=== PATIENT | male | born 1970 | race Caucasian/White ===

== ENCOUNTER 2020-07-21 17:06 | Emergency (ER) | payer OTHER ==
[2020-07-21 17:21] LABS: Appearance,Urine Clear (Clear); Bilirubin,Urine Negative (Negative); Blood,Urine Negative (Negative); Color,Urine Yellow; Glucose,Urine (UA) Negative (Negative); Ketones,Urine Negative (Negative); Leukocyte Esterase,Urine Negative (Negative); Nitrite,Urine Negative (Negative); Protein,Urine Trace (Negative); Specific Gravity,Urine 1.019 (1.001-1.035); Urobilinogen,Urine <2.0 mg/dL (<2.0)
[2020-07-21 17:31] LABS: Amphetamine Screen,Urine Detected (NotDetected); Barbiturate Screen,Urine Not Detected (NotDetected); Benzodiazepines Screen,Urine Not Detected (NotDetected); Cocaine Screen,Urine Not Detected (NotDetected); Methadone Screen, Urine Not Detected (NotDetected); Opiate Screen,Urine Not Detected (NotDetected); Oxycodone Screen, Urine Not Detected (NotDetected); Phencyclidine Screen,Urine Not Detected (NotDetected); Tricyclic Antidepressant,Urine Detected (NotDetected); Urn Cannabinoid Scrn Detected (NotDetected)
[2020-07-21] MEDS ORDERED: LORazepam 2 MG/ML INJ IV STA (18:03)
--- NOTE | 2020-07-21 18:28 | XR ---
EXAMINATION TYPE: XR chest 2V DATE OF EXAM: 07/21/2020 COMPARISON: NONE HISTORY: Weakness TECHNIQUE: 2 views FINDINGS: Heart and mediastinum are normal. Lungs are clear. Diaphragm is normal. Bony thorax is inta ct. There are chest leads. Pulmonary vascularity is normal. IMPRESSION: Normal chest.
[2020-07-21 18:33] VITALS: PULSE 105
[2020-07-21] MEDS ORDERED: SODIUM CHLORIDE 0.9% 1,000 ML IV ONE (18:34)
[2020-07-21 18:44] VITALS: TEMP 99.5
--- NOTE | 2020-07-21 18:51 | ED ---
General Adult HPI - General Chief complaint: Recheck/Abnormal Lab/Rx Stated complaint: lab recheck Time Seen by Provider: 07/21/20 17:10 Source: patient, EMS Mode of arrival: EMS Limitations: no limitations - History of Present Illness Initial comments: Patient is a 50-year-old male with past medical history of seizure disorder, chronic pain, ADHD who presents to the emergency department with reported palpitations and possible medication overdose. Patient reports that he normally takes Adderall 3 times daily. States that he accidentally took 4 tablets today. It caused him to feel very anxious with palpitations. He has also been out of his Klonopin for the past 2 days. 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 He is not on a pain contract. He denies chest pain or shortness of breath. Denies any other medications that were taken in excess. Denies withdrawing from any other medications. Does admit to marijuana use. Denies any other substance abuse. No headaches or visual changes. No abdominal pain. Admits to mild dysuria. Upon arrival patient is noted have a fever. States this is normal for him. Admits to mild nasal congestion several days ago which is aren't improving. Admits to chronic cough since he is a smoker however denies any new or worsening cough. No shortness of breath. No other allev iating, precipitating or modifying factors - Related Data Home Medications Medication Instructions Recorded Confirmed Albuterol Inhaler (Mhu) [Ventolin 1 - 2 puff INHALATION RT-Q6H PRN 06/26/19 06/26/19 Hfa Inhaler] Baclofen 10 mg PO TID 06/26/19 06/26/19 DULoxetine HCL [Cymbalta] 120 mg PO DAILY 06/26/19 06/26/19 Dextroamphetamine/Amphetamine 20 mg PO TID 06/26/19 06/26/19 [Adderall] Ibuprofen [Motrin] 600 mg PO BID 06/26/19 06/26/19 QUEtiapine FUMARATE [SEROquel XR] 400 mg PO DAILY 06/26/19 06/26/19 buPROPion XL [Wellbutrin Xl] 150 mg PO DAILY 06/26/19 06/26/19 clonazePAM [KlonoPIN] 0.5 mg PO DIRECTED PRN 06/26/19 06/26/19 clonazePAM [KlonoPIN] 1 mg PO BID 06/26/19 06/26/19 clonazePAM [KlonoPIN] 2 mg PO HS 06/26/19 06/26/19 lamoTRIgine [LaMICtal] 400 mg PO DAILY 06/26/19 06/26/19 Previous Rx's Medication Instructions Recorded clonazePAM [KlonoPIN] 1 mg PO TID 3 Days #9 tablet 07/21/20 Allergies Allergy/AdvReac Type Severity Reaction Status Date / Time sulfamethoxazole Allergy Itching/hot Verified 06/26/19 15:22 [From Bactrim] flashes trimethoprim [From Bactrim] Allergy Itching/hot Verified 06/26/19 15:22 flashes Review of Systems ROS Statement: Those systems with pertinent positive or pertinent negative responses have been documented in the HPI. ROS Other: All systems not noted in ROS Statement are negative. Past Medical History Past Medical History: Seizure Disorder Additional Past Medical History / Comment(s): last seizure approx 2017, chronic back pain History of Any Multi-Drug Resistant Organisms: None Reported Past Surgical History: Appendectomy, Cholecystectomy Additional Past Surgical History / Comment(s): rt eye sx, fluid drained rt leg, pain clinic procedures Past Anesthesia/Blood Transfusion Reactions: No Reported Reaction Past Psychological History: Anxiety, Bipolar, Depression Smoking Status: Current every day smoker Past Alcohol Use History: Occasional Past Drug Use History: Marijuana General Exam Limitations: no limitations General appearance: alert, in no apparent distress, anxious Head exam: Present: atraumatic, normocephalic, normal inspection Eye exam: Present: normal appearance, PERRL, EOMI. Absent: scleral icterus, conjunctival injection, periorbital swelling ENT exam: Present: normal exam, mucous membranes moist Neck exam: Present: normal inspection. Absent: tenderness, meningismus, lymphadenopathy Respiratory exam: Present: normal lung sounds bilaterally. Absent: respiratory distress, wheezes, rales, rhonchi, stridor Cardiovascular Exam: Present: normal rhythm, tachycardia GI/Abdominal exam: Present: soft, normal bowel sounds. Absent: distended, tenderness, guarding, rebound, rigid Neurological exam: Present: alert, oriented X3 Psychiatric exam: Present: anxious Skin exam: Present: warm, dry, intact, normal color. Absent: rash Course Vital Signs 07/21/20 07/21/20 07/21/20 17:09 18:14 18:43 Temperature 100.4 F H 99.5 F Pulse Rate 104 H 105 H Respiratory 20 20 Rate Blood Pressure 136/93 129/93 O2 Sat by Pulse 100 99 Oximetry 07/21/20 19:39 Temperature Pulse Rate 105 H Respiratory 18 Rate Blood Pressure 136/90 O2 Sat by Pulse 95 Oximetry Medical Decision Making - Medical Decision Making On arrival patient is placed into room 23. A thorough history and physical exam was performed. Patient does have a notable temp. Did request a covid swab and chest x-ray to evaluate for fever for which the patient did agree to. Urine is sent for dysuria. Lab studies are reviewed which demonstrates that the patient is positive for TCAs, amphetamines and marijuana. Coronavirus is detected. Chest x-ray demonstrates no acute process. Discuss results with the patient. Patient is afebrile after fluid administration. He isgiven 2 mg of Ativan for his palpitations and signs of acute withdrawal. He has no increased work of breathing. I discussed diagnosis, differential and treatment options. Patient feels comfortable going home at this time and is to follow-up with his primary care doctor. I instructed him to quarantine for 10 days or until symptoms improve. I will give him a 3 day prescription for his Klonopin until he is able to obtain his prescription as a do not want him to withdraw. Patient is instructed to use his Adderall as directed. Return to the emergency room for any new or worsening symptoms. Patient was discharged home in stable condition - Lab Data Lab Results 07/21/20 07/21/20 Range/Units 17:16 18:12 Urine Color Yellow Urine Appearance Clear (Clear) Urine pH 6.0 (5.0-8.0) Ur Specific [place] 1.019 (1.001-1.035) Urine Protein Trace H (Negative) Urine Glucose (UA) Negative (Negative) Urine Ketones Negative (Negative) Urine Blood Negative (Negative) Urine Nitrite Negative (Negative) Urine Bilirubin Negative (Negative) Urine Urobilinogen <2.0 (<2.0) mg/dL Ur Leukocyte Esterase Negative (Negative) Urine Opiates Screen Not Detected (NotDetected) Ur Oxycodone Screen Not Detected (NotDetected) Urine Methadone Screen Not Detected (NotDetected) Ur Propoxyphene Screen Not Detected (NotDetected) Ur Barbiturates Screen Not Detected (NotDetected) U Tricyclic Antidepress Detected H (NotDetected) Ur Phencyclidine Scrn Not Detected (NotDetected) Ur Amphetamines Screen Detected H (NotDetected) U Methamphetamines Scrn Not Detected (NotDetected) U Benzodiazepines Scrn Not Detected (NotDetected) Urine Cocaine Screen Not Detected (NotDetected) U Marijuana (THC) Screen Detected H (NotDetected) Coronavirus (PCR) Detected A (Not Detectd) Disposition Clinical Impression: COVID-19, Tachycardia, Amphetamine use disorder, mild Disposition: HOME SELF-CARE Condition: Stable Instructions (If sedation given, give patient instructions): Heart Palpitations (ED) Additional Instructions: Please follow up with your doctor in 2-4 days. Return to the ED for any new or worsening symptoms. quarantine for 10 day and your symptoms are gone. Prescriptions: clonazePAM [KlonoPIN] 1 mg PO TID 3 Days #9 tablet Is patient prescribed a controlled substance at d/c from ED?: Yes When asked, does pt state using other controlled substances?: No If prescribed controlled substance>3 days was MAPS reviewed?: Prescribed <3 Days Referrals: Matt Yoon MD [Primary Care Provider] - 1-2 days Time of Disposition: 18:50
[2020-07-21 19:40] VITALS: BP 136/90; RESP 18
== END 2020-07-21 19:45 | disposition home or self-care (01) ==
LOC: EC 17:06
DX: U07.1 COVID-19 (principal); R00.0 Tachycardia, unspecified; F15.10 Other stimulant abuse, uncomplicated; G40.909 Epilepsy, unspecified, not intractable, without status epilepticus; F90.9 Attention-deficit hyperactivity disorder, unspecified type; F17.200 Nicotine dependence, unspecified, uncomplicated; Z79.1 Long term (current) use of non-steroidal anti-inflammatories (NSAID); Z79.899 Other long term (current) drug therapy; Z88.2 Allergy status to sulfonamides; Z88.1 Allergy status to other antibiotic agents
CPT/HCPCS: 81003; 80306; 87635; 71046; 99285; J2060

== ENCOUNTER 2021-06-23 13:59 | Emergency (ER) | payer OTHER ==
[2021-06-23] MEDS ORDERED: DIAZEPAM 5 MG/ML 2 ML INJ IVP STA (14:22)
[2021-06-23 14:55] LABS: Basophils # (A) 0.1 k/uL (0-0.2); Basophils % (A) 1 %; Eosinophils # (A) 0.3 k/uL (0-0.7); Eosinophils % (A) 4 %; HCT 44.1 % (39.0-53.0); HGB 14.3 gm/dL (13.0-17.5); Lymphocytes # (A) 1.4 k/uL (1.0-4.8); Lymphocytes % (A) 17 %; MCH 30.8 pg (25.0-35.0); MCHC 32.4 g/dL (31.0-37.0); MCV 95.3 fL (80.0-100.0); Mean Platelet Volume 7.3; Monocytes # (A) 0.3 k/uL (0-1.0); Monocytes % (A) 4 %; Neutrophils # (A) 5.8 k/uL (1.3-7.7); Neutrophils % (A) 73 %; Platelet Count 244 k/uL (150-450); RBC 4.62 m/uL (4.30-5.90); RDW 13.8 % (11.5-15.5)
[2021-06-23 15:03] LABS: ALT 19 U/L (4-49); AST 25 U/L (17-59); African American GFR (CKD) >90 (>60 ml/min/1.73 sqM); Albumin 3.7 g/dL (3.5-5.0); Alkaline Phosphatase 119 U/L (38-126); Anion Gap 3 mmol/L; Blood Urea Nitrogen 11 mg/dL (9-20); Calcium 9.3 mg/dL (8.4-10.2); Carbon Dioxide 25 mmol/L (22-30); Chloride 108 mmol/L (98-107); Glucose 98 mg/dL (74-99); Non-African American GFR(CKD) >90 (>60 ml/min/1.73 sqM); Potassium 3.8 mmol/L (3.5-5.1); Sodium 136 mmol/L (137-145); Total Bilirubin 0.4 mg/dL (0.2-1.3); Total Protein 6.5 g/dL (6.3-8.2)
--- NOTE | 2021-06-23 15:41 | XR ---
EXAMINATION TYPE: XR chest 1V DATE OF EXAM: 06/23/2021 COMPARISON: Chest x-ray July 21, 2020 HISTORY: Chronic neck and chest pain. TECHNIQUE: Single frontal view of the chest is obtained. FINDINGS: There is no suspicious new focal air space opacity, pleural effusion, or pneumothorax seen . The cardiac silhouette size remains within normal limits. The osseous structures are intact. IMPRESSION: No acute process.
--- NOTE | 2021-06-23 15:47 | XR ---
Cervical spine HISTORY: Neck pain and stiffness 5 views of the cervical spine There is multilevel spondylosis, hypertrophic change. Loss of disc height is present at C4-5, C5-6 an d C6-7. Minimal anterolisthesis grade 1 C2-3 is noted. Cervical vertebral bodies show preserved heigh t. Bone mineralization thought to be maintained. There is facet arthropathy change. Oblique images sh ow some foraminal encroachment on the left at C4-5, C5-6 and C6-7, on the right at C2-3, C5-6, C6-7. Rudimentary cervical ribs are present. There is questionable abnormal soft tissue at the level of the epiglottis, lobular tissue along the pharynx. IMPRESSION: Degenerative disc disease and facet arthropathy. Indeterminate soft tissue in the pharyng eal soft tissues, consider contrast-enhanced neck CT.
--- NOTE | 2021-06-23 16:10 | ED ---
General Adult HPI - General Source: patient, EMS, RN notes reviewed Mode of arrival: EMS Limitations: no limitations <Pipe Ortiz - Last Filed: 06/23/21 16:08> <Génesis Cast - Last Filed: 06/28/21 16:43> - General Chief complaint: Anxiety Stated complaint: Anixety Attack Time Seen by Provider: 06/23/21 14:02 - History of Present Illness Initial comments: 51-year-old male present emergency Department with chief complaint of left shoulder pain. Been having intermittent symptoms states symptoms are worse with movement. He has no chest pain or shortness of breath. Patient states that the pain is worse with movement states that it just feels very tight. Patient states he has some mild neck discomfort he states his symptoms and then make him very anxious he has severe anxiety. Patient has no mental abdominal pain. No trauma no weakness associated with this. No headache. Patient states that he is [id number]. (Pipe Ortiz) - Related Data Home Medications Medication Instructions Recorded Confirmed DULoxetine HCL [Cymbalta] 120 mg PO DAILY 06/26/19 06/23/21 Dextroamphetamine/Amphetamine 20 mg PO TID 06/26/19 06/23/21 [Adderall] Ibuprofen [Motrin] 600 mg PO TID PRN 06/26/19 06/23/21 QUEtiapine FUMARATE [SEROquel XR] 400 mg PO HS 06/26/19 06/23/21 buPROPion XL [Wellbutrin Xl] 450 mg PO DAILY 06/26/19 06/23/21 lamoTRIgine [LaMICtal] 400 mg PO DAILY 06/26/19 06/23/21 Albuterol Sulfate [Proair Hfa] 2 puff INHALATION RT-QID PRN 06/23/21 06/23/21 Cholecalciferol [Vitamin D3 (25 50 mcg PO DAILY 06/23/21 06/23/21 Mcg = 1000 Iu)] Tiotropium [place] [Spiriva] 1 cap INHALATION RT-DAILY 06/23/21 06/23/21 clonazePAM [KlonoPIN] 1 mg PO BID 06/23/21 06/23/21 Allergies Allergy/AdvReac Type Severity Reaction Status Date / Time sulfamethoxazole Allergy Itching/hot Verified 06/23/21 16:43 [From Bactrim] flashes trimethoprim [From Bactrim] Allergy Itching/hot Verified 06/23/21 16:43 flashes Review of Systems ROS Other: All systems not noted in ROS Statement are negative. <Pipe Ortiz - Last Filed: 06/23/21 16:08> ROS Other: All systems not noted in ROS Statement are negative. <Génesis Cast Lu - Last Filed: 06/28/21 16:43> ROS Statement: Those systems with pertinent positive or pertinent negative responses have been documented in the HPI. Past Medical History Past Medical History: Seizure Disorder Additional Past Medical History / Comment(s): last seizure approx 2018, chronic back pain History of Any Multi-Drug Resistant Organisms: None Reported Past Surgical History: Appendectomy, Cholecystectomy Additional Past Surgical History / Comment(s): rt eye sx, fluid drained rt leg, pain clinic procedures Past Anesthesia/Blood Transfusion Reactions: No Reported Reaction Past Psychological History: ADD/ADHD, Anxiety, Bipolar, Depression Smoking Status: Current every day smoker Past Alcohol Use History: Occasional Past Drug Use History: Marijuana <JazielPipe villanueva - Last Filed: 06/23/21 16:08> General Exam Limitations: no limitations General appearance: alert, in no apparent distress, anxious (Patient is very anxious) Head exam: Present: atraumatic, normocephalic, normal inspection Eye exam: Present: normal appearance, PERRL, EOMI. Absent: scleral icterus, conjunctival injection, periorbital swelling ENT exam: Present: normal exam, normal oropharynx, mucous membranes moist Neck exam: Present: normal inspection, full ROM. Absent: tenderness, meningismus, lymphadenopathy Respiratory exam: Present: normal lung sounds bilaterally. Absent: respiratory distress, wheezes, rales, rhonchi, stridor Cardiovascular Exam: Present: normal rhythm, tachycardia, normal heart sounds. Absent: systolic murmur, diastolic murmur, rubs, gallop, clicks GI/Abdominal exam: Present: soft, normal bowel sounds. Absent: distended, tenderness, guarding, rebound, rigid Extremities exam: Present: other (Upper extremity strength bilaterally, mild discomfort left scapular region with range of motion palpation the left shoulder neurovascular intact no iris deformity no rashes noted) Back exam: Present: full ROM, tenderness. Absent: paraspinal tenderness, vertebral tenderness Neurological exam: Present: alert, oriented X3, CN II-XII intact, reflexes normal. Absent: motor sensory deficit <Pipe Ortiz - Last Filed: 06/23/21 16:08> Course Vital Signs 06/23/21 06/23/21 14:02 17:36 Temperature 99.3 F 98.5 F Pulse Rate 112 H 103 H Respiratory 24 14 Rate Blood Pressure 141/93 146/87 O2 Sat by Pulse 98 98 Oximetry Medical Decision Making - Lab Data Result diagrams: 06/23/21 14:39 06/23/21 14:39 <Pipe Ortiz - Last Filed: 06/23/21 16:08> - Lab Data Result diagrams: 06/23/21 14:39 06/23/21 14:39 <Génesis Cast - Last Filed: 06/28/21 16:43> - Medical Decision Making Patient signed out to me - I reviewed all labs and imaging. I discussed the results with the patient. Patient feels comfortable with discharge home. He needs to follow up with his PCP in regards to his complaints for further workup. Return for any new or worsening symptoms. (Génesis Cast) - Lab Data Lab Results 06/23/21 06/23/21 06/23/21 Range/Units 14:39 14:39 14:39 WBC 8.0 (3.8-10.6) k/uL RBC 4.62 (4.30-5.90) m/uL Hgb 14.3 (13.0-17.5) gm/dL Hct 44.1 (39.0-53.0) % MCV 95.3 (80.0-100.0) fL MCH 30.8 (25.0-35.0) pg MCHC 32.4 (31.0-37.0) g/dL RDW 13.8 (11.5-15.5) % Plt Count 244 (150-450) k/uL MPV 7.3 Neutrophils % 73 % Lymphocytes % 17 % Monocytes % 4 % Eosinophils % 4 % Basophils % 1 % Neutrophils # 5.8 (1.3-7.7) k/uL Lymphocytes # 1.4 (1.0-4.8) k/uL Monocytes # 0.3 (0-1.0) k/uL Eosinophils # 0.3 (0-0.7) k/uL Basophils # 0.1 (0-0.2) k/uL Sodium 136 L (137-145) mmol/L Potassium 3.8 (3.5-5.1) mmol/L Chloride 108 H (98-107) mmol/L Carbon Dioxide 25 (22-30) mmol/L Anion Gap 3 mmol/L BUN 11 (9-20) mg/dL Creatinine 0.92 (0.66-1.25) mg/dL Est GFR (CKD-EPI)AfAm >90 (>60 ml/min/1.73 sqM) Est GFR (CKD-EPI)NonAf >90 (>60 ml/min/1.73 sqM) Glucose 98 (74-99) mg/dL Calcium 9.3 (8.4-10.2) mg/dL Total Bilirubin 0.4 (0.2-1.3) mg/dL AST 25 (17-59) U/L ALT 19 (4-49) U/L Alkaline Phosphatase 119 (38-126) U/L Troponin I <0.012 (0.000-0.034) ng/mL Total Protein 6.5 (6.3-8.2) g/dL Albumin 3.7 (3.5-5.0) g/dL Disposition <Pipe Ortiz - Last Filed: 06/23/21 16:08> Is patient prescribed a controlled substance at d/c from ED?: No Time of Disposition: 17:44 <Génesis Cast - Last Filed: 06/28/21 16:43> Clinical Impression: Neck pain Disposition: HOME SELF-CARE Instructions (If sedation given, give patient instructions): Generalized Anxiety Disorder (ED) Referrals: Thuan Treadwell MD [Primary Care Provider] - 1-2 days
--- NOTE | 2021-06-23 17:31 | CT ---
EXAMINATION TYPE: CT soft tissue neck w con DATE OF EXAM: 06/23/2021 COMPARISON: None HISTORY: left sided neck pain CT DLP: 445.1 mGycm Automated exposure control for dose reduction was used. CONTRAST: Performed with IV Contrast, patient injected with 100 mL of Isovue 300. Images obtained from the top of the aortic arch to the orbits with IV contrast. There is normal branching pattern of the great vessels on the aortic arch. Thyroid gland is symmetric . There is arterial flow in the carotid and vertebral arteries. There is arterial flow in the subclav bret arteries. There is normal contrast opacification of the jugular veins. The submandibular salivary glands are symmetric. Parotid glands appear symmetric. The trachea appears normal. There is no significant cervical lymphadenopathy. There are submandibular lymph nodes and an terior triangle lymph nodes that measure up to 12 mm. Epiglottis is normal. There is some mucous in the posterior nasopharynx. The tongue appears intact. T onsils are not enlarged. The maxilla is intact. Zygomatic arches appear normal. Nasal bone is intact. There is fairly normal a eration of the paranasal sinuses. There is moderate spondylotic changes in the cervical spine from C4 to C7 with sclerosis and anterior osteophyte formation. The facet joints are intact. There is no carlos dence of a pharyngeal mass. IMPRESSION: Moderate spondylotic changes in the mid and lower cervical spine for the patient's age. No fracture s een. Normal epiglottis. Nonspecific anterior triangle cervical lymph nodes are likely related to some mini mal inflammatory disease. No evidence of pharyngeal mass.
[2021-06-23 17:39] VITALS: BP 146/87; PULSE 103; RESP 14; TEMP 98.5
== END 2021-06-23 18:47 | disposition home or self-care (01) ==
LOC: EC 13:59
DX: M54.2 Cervicalgia (principal); F90.9 Attention-deficit hyperactivity disorder, unspecified type; F41.9 Anxiety disorder, unspecified; F31.9 Bipolar disorder, unspecified; F17.200 Nicotine dependence, unspecified, uncomplicated; F12.90 Cannabis use, unspecified, uncomplicated; Z88.1 Allergy status to other antibiotic agents; Z88.2 Allergy status to sulfonamides; Z90.49 Acquired absence of other specified parts of digestive tract
CPT/HCPCS: 99284; 96374; 36415; 93005; 80053; 84484; 85025; 72050; 71045; 70491; J3360; Q9967

== ENCOUNTER 2021-11-21 05:41 | Emergency (ER) | payer OTHER ==
[2021-11-21 05:51] VITALS: RESP 16; TEMP 98.9
[2021-11-21] MEDS ORDERED: diazePAM 5 MG TAB PO STA (06:27)
--- NOTE | 2021-11-21 06:27 | ED ---
Extremity Problem HPI - General Chief complaint: Extremity Problem,Nontraumatic Stated complaint: right arm numbness Time Seen by Provider: 11/21/21 06:05 Source: patient, EMS, RN notes reviewed Mode of arrival: EMS Limitations: no limitations - History of Present Illness Initial comments: 51-year-old male presents emergency Department chief complaint right arm numbness. Patient states that she's been having some on-and-off issues. Patient had another episode today. He is scheduled for an MRI he has had a recent CAT scan at [place]. He states is a result of time. He denies any chest pain shortness of breath. he does admit there is very anxious. Patient states that he has no associated weakness nausea vomiting no headache no blurred vision no other associated symptoms. - Related Data Home Medications Medication Instructions Recorded Confirmed DULoxetine HCL [Cymbalta] 120 mg PO DAILY 06/26/19 06/23/21 Dextroamphetamine/Amphetamine 20 mg PO TID 06/26/19 06/23/21 [Adderall] Ibuprofen [Motrin] 600 mg PO TID PRN 06/26/19 06/23/21 QUEtiapine FUMARATE [SEROquel XR] 400 mg PO HS 06/26/19 06/23/21 buPROPion XL [Wellbutrin Xl] 450 mg PO DAILY 06/26/19 06/23/21 lamoTRIgine [LaMICtal] 400 mg PO DAILY 06/26/19 06/23/21 Albuterol Sulfate [Proair Hfa] 2 puff INHALATION RT-QID PRN 06/23/21 06/23/21 Cholecalciferol [Vitamin D3 (25 50 mcg PO DAILY 06/23/21 06/23/21 Mcg = 1000 Iu)] Tiotropium [place] [Spiriva] 1 cap INHALATION RT-DAILY 06/23/21 06/23/21 clonazePAM [KlonoPIN] 1 mg PO BID 06/23/21 06/23/21 Allergies Allergy/AdvReac Type Severity Reaction Status Date / Time sulfamethoxazole Allergy Itching/hot Verified 06/23/21 16:43 [From Bactrim] flashes trimethoprim [From Bactrim] Allergy Itching/hot Verified 06/23/21 16:43 flashes Review of Systems ROS Statement: Those systems with pertinent positive or pertinent negative responses have been documented in the HPI. ROS Other: All systems not noted in ROS Statement are negative. Past Medical History Past Medical History: Seizure Disorder Additional Past Medical History / Comment(s): last seizure approx 2018, chronic back pain History of Any Multi-Drug Resistant Organisms: None Reported Past Surgical History: Appendectomy, Cholecystectomy Additional Past Surgical History / Comment(s): rt eye sx, fluid drained rt leg, pain clinic procedures Past Anesthesia/Blood Transfusion Reactions: No Reported Reaction Past Psychological History: ADD/ADHD, Anxiety, Bipolar, Depression Smoking Status: Current every day smoker Past Alcohol Use History: Occasional Past Drug Use History: Marijuana General Exam Limitations: no limitations General appearance: alert, in no apparent distress Head exam: Present: atraumatic, normocephalic, normal inspection Eye exam: Present: normal appearance, PERRL, EOMI. Absent: scleral icterus, conjunctival injection, periorbital swelling ENT exam: Present: normal exam, normal oropharynx, mucous membranes moist Neck exam: Present: normal inspection, full ROM. Absent: tenderness, meningismus, lymphadenopathy Respiratory exam: Present: normal lung sounds bilaterally. Absent: respiratory distress, wheezes, rales, rhonchi, stridor Cardiovascular Exam: Present: regular rate, normal rhythm, normal heart sounds. Absent: systolic murmur, diastolic murmur, rubs, gallop, clicks Extremities exam: Present: other (Upper and lower extremity strength equal bilaterally neurovascular intact equal color equal warmth) Back exam: Present: full ROM. Absent: tenderness Neurological exam: Present: alert, oriented X3, CN II-XII intact, reflexes normal. Absent: motor sensory deficit Psychiatric exam: Present: anxious Course Vital Signs 11/21/21 05:44 Temperature 98.9 F Pulse Rate 113 H Respiratory 16 Rate Blood Pressure 131/97 O2 Sat by Pulse 97 Oximetry Medical Decision Making - Medical Decision Making patient had recent imaging of his neck is scheduled for an MRI. He is asymptomatic. Patient will be discharged in stable condition with follow-up for his MRI. Patient be treated with Valium for his anxiety at this time. Patient discharged in stable condition. Disposition Clinical Impression: Cervical radiculopathy Disposition: HOME SELF-CARE Condition: Stable Instructions (If sedation given, give patient instructions): Cervical Radiculopathy (ED) Additional Instructions: Please return to the Emergency Department if symptoms worsen or any other concerns. Is patient prescribed a controlled substance at d/c from ED?: No Referrals: Thuan Treadwell MD [Primary Care Provider] - 1-2 days Time of Disposition: 06:27
[2021-11-21 06:32] VITALS: BP 127/76; PULSE 103
== END 2021-11-21 06:34 | disposition home or self-care (01) ==
LOC: EC 05:41
DX: M54.12 Radiculopathy, cervical region (principal); F17.200 Nicotine dependence, unspecified, uncomplicated; Z88.2 Allergy status to sulfonamides; Z88.8 Allergy status to other drugs, medicaments and biological substances

== ENCOUNTER → 2021-12-06 | Outpatient (CLI) | payer OTHER ==
--- NOTE | 2021-12-06 11:27 | MR ---
EXAMINATION TYPE: MR cervical spine wo con DATE OF EXAM: 12/06/2021 COMPARISON: None HISTORY: Neck pain that radiates down right arm to fingers, weakness in left arm, stiffness, and head aches. TECHNIQUE: Multiplanar, multisequence images of the cervical spine were acquired without contrast. C2-C3: Mild disc desiccation. Mild posterior disc bulge with minimal effacement ventral thecal sac. N o Canal stenosis. Foramina are patent bilaterally. C3-C4: Mild disc desiccation. Mild posterior disc bulge with minimal effacement ventral thecal sac. N o Canal stenosis. Foramina are patent bilaterally. C4-C5: Severe disc desiccation with moderate posterior disc bulge. There is ventral CORD contact with the moderate central stenosis. Increased signal within the cervical spinal cord may reflect compress suzi myelopathy. There is degenerative change of the cervical apophyseal joints resulting in bilateral foraminal encroachment. C5-C6: Moderate disc desiccation. Posterior disc bulge with encapsulating spur. Mild effacement ventr al thecal sac. No evidence for central stenosis or polly disc herniation. Bilateral foraminal encroac hment mild in degree. C6-C7: Moderate disc desiccation. Posterior disc bulge with encapsulating spur. Mild effacement ventr al thecal sac. No evidence for central stenosis or polly disc herniation. Bilateral foraminal encroac hment mild in degree. C7-T1: No evidence for degenerative disc disease. No disc bulge/herniation or protrusion. No Canal stenosis. Foramina are patent bilaterally. Cervical segments are intact. There is normal alignment. Cervical spinal cord is of normal signal. Craniovertebral junction relationships are within normal limits. IMPRESSION: 1. Multilevel degenerative disc disease most severe at C4-5 where there is moderate central stenosis and compressive myelopathy suggested.
== END | disposition home or self-care (01) ==
LOC: RADMRIMAIN 09:27
PROVIDERS: ATTEND Internal Medicine
DX: M50.321 Other cervical disc degeneration at C4-C5 level (principal); M99.71 Connective tissue and disc stenosis of intervertebral foramina of cervical region
CPT/HCPCS: 72141

== ENCOUNTER 2021-12-12 17:15 | Emergency (ER) | payer OTHER ==
[2021-12-12 17:27] VITALS: RESP 18
[2021-12-12] MEDS ORDERED: predniSONE 50 MG TAB PO STA (17:37)
--- NOTE | 2021-12-12 17:45 | ED ---
General Adult HPI - General Chief complaint: Neck Pain/Injury Stated complaint: Neck pain Time Seen by Provider: 12/12/21 17:25 Source: patient, EMS, RN notes reviewed, old records reviewed Mode of arrival: EMS Limitations: physical limitation - History of Present Illness Initial comments: Is a 51-year-old male who presents emergency Department with known cervical degenerative disc disease and some radicular pain. Patient states he turned his neck today and then he started having a little bit more radicular tingling and numbness of his right hand and he states that was worse we decided to come into the emergency department to be evaluated. Patient denies any weakness. Patient states he does have sensation to all spheres but it's just more tingly and feels different than normal. Patient denies any blunt trauma falls. Patient states he just got his gabapentin increased recently and he takes ibuprofen. Patient denies any fever chills per patient denies any headache. - Related Data Home Medications Medication Instructions Recorded Confirmed DULoxetine HCL [Cymbalta] 120 mg PO DAILY 06/26/19 06/23/21 Dextroamphetamine/Amphetamine 20 mg PO TID 06/26/19 06/23/21 [Adderall] Ibuprofen [Motrin] 600 mg PO TID PRN 06/26/19 06/23/21 QUEtiapine FUMARATE [SEROquel XR] 400 mg PO HS 06/26/19 06/23/21 buPROPion XL [Wellbutrin Xl] 450 mg PO DAILY 06/26/19 06/23/21 lamoTRIgine [LaMICtal] 400 mg PO DAILY 06/26/19 06/23/21 Albuterol Sulfate [Proair Hfa] 2 puff INHALATION RT-QID PRN 06/23/21 06/23/21 Cholecalciferol [Vitamin D3 (25 50 mcg PO DAILY 06/23/21 06/23/21 Mcg = 1000 Iu)] Tiotropium [place] [Spiriva] 1 cap INHALATION RT-DAILY 06/23/21 06/23/21 clonazePAM [KlonoPIN] 1 mg PO BID 06/23/21 06/23/21 Previous Rx's Medication Instructions Recorded predniSONE [Deltasone] 40 mg PO DAILY #8 tab 12/12/21 Allergies Allergy/AdvReac Type Severity Reaction Status Date / Time sulfamethoxazole Allergy Itching/hot Verified 12/12/21 17:27 [From Bactrim] flashes trimethoprim [From Bactrim] Allergy Itching/hot Verified 12/12/21 17:27 flashes Review of Systems ROS Statement: Those systems with pertinent positive or pertinent negative responses have been documented in the HPI. ROS Other: All systems not noted in ROS Statement are negative. Past Medical History Past Medical History: Seizure Disorder Additional Past Medical History / Comment(s): last seizure approx 2018, chronic back pain History of Any Multi-Drug Resistant Organisms: None Reported Past Surgical History: Appendectomy, Cholecystectomy Additional Past Surgical History / Comment(s): rt eye sx, fluid drained rt leg, pain clinic procedures Past Anesthesia/Blood Transfusion Reactions: No Reported Reaction Past Psychological History: ADD/ADHD, Anxiety, Bipolar, Depression Smoking Status: Current every day smoker Past Alcohol Use History: Occasional Past Drug Use History: Marijuana General Exam - General Exam Comments Initial Comments: GENERAL: Patient is well-developed and well-nourished. Patient is nontoxic and well-hydrated and is in mild distress. ENT: Neck is soft and supple. No significant lymphadenopathy is noted. Oropharynx is clear. Moist mucous membranes. Neck has full range of motion without eliciting any pain. EYES: The sclera were anicteric and conjunctiva were pink and moist. Extraocular movements were intact and pupils were equal round and reactive to light. Eyelids were unremarkable. PULMONARY: Unlabored respirations. Good breath sounds bilaterally. CARDIOVASCULAR: There is a regular rate and rhythm without any murmurs gallops or rubs. ABDOMEN: Soft and nontender with normal bowel sounds. No palpable organomegaly was noted. There is no palpable pulsatile mass. SKIN: Skin is clear with no lesions or rashes and otherwise unremarkable. NEUROLOGIC: Patient is alert and oriented x3. Cranial nerves II through XII are grossly intact. Motor and sensory are also intact. Normal speech, volume and content. Symmetrical smile. Cerebellar exam grossly intact. MUSCULOSKELETAL: Normal extremities with adequate strength and full range of motion. LYMPHATICS: No significant lymphadenopathy is noted PSYCHIATRIC: Normal psychiatric evaluation. However patient is hyperverbal and seems mildly anxious Limitations: physical limitation Course Vital Signs 12/12/21 17:22 Temperature 98.6 F Pulse Rate 81 Respiratory 18 Rate Blood Pressure 117/86 O2 Sat by Pulse 95 Oximetry Medical Decision Making - Medical Decision Making Patient was given steroids for his radicular pain Disposition Clinical Impression: Cervical radiculopathy Disposition: HOME SELF-CARE Condition: Good Instructions (If sedation given, give patient instructions): Cervical Radiculopathy (ED) Additional Instructions: Patient should not take ibuprofen while he is taking it started. Prescriptions: predniSONE [Deltasone] 40 mg PO DAILY #8 tab Is patient prescribed a controlled substance at d/c from ED?: No Referrals: Thuan Treadwell MD [Primary Care Provider] - 1-2 days Time of Disposition: 17:44
[2021-12-12 19:09] VITALS: BP 128/85; PULSE 89; TEMP 98.4
== END 2021-12-12 19:09 | disposition home or self-care (01) ==
LOC: EC 17:15
DX: M54.12 Radiculopathy, cervical region (principal); F17.200 Nicotine dependence, unspecified, uncomplicated; Z88.2 Allergy status to sulfonamides; Z88.8 Allergy status to other drugs, medicaments and biological substances
CPT/HCPCS: 99283; J7512

== ENCOUNTER → 2023-08-06 | Outpatient (CLI) | payer OTHER ==
--- NOTE | 2023-08-07 21:01 | MR ---
EXAMINATION TYPE: MR liver wo/w con DATE OF EXAM: 08/06/2023 6:42 PM CLINICAL INDICATION:Male, 53 years old with history of R74.8 Elevated liver enzymes; PHH, Elevated li gill enzymes COMPARISON: None TECHNIQUE: Multiplanar multi-sequence imaging was performed without contrast. Post contrast imaging was performed. Post IV contrast subtraction images were also submitted for review. IV Contrast: 9.5 cc Gadavist FINDINGS: LOWER CHEST: No gross irregularity. ABDOMEN Liver: No evidence for cirrhosis. Signal dropout on chemical shift out of phase imaging. Gallbladder and Bile ducts: No evidence for ductal dilation, or biliary stricture or evidence of chol edocholithiasis. The gallbladder appears surgically absent. Pancreas: No ductal dilation. No evidence for solid mass. Spleen: Normal for size. Adrenal glands: Unremarkable. Kidneys: No evidence for obstructive uropathy. No suspicious renal masses. Simple appearing hepatic T 2 renal cysts. Stomach and Bowel: No evidence for bowel wall thickening or evidence for obstruction. Retroperitoneum/Peritoneum: No evidence of pneumoperitoneum or free fluid. Vasculature: No aortic aneurysm. Musculoskeletal: The osseous structures appear intact. Lymph Nodes: No gross evidence for lymphadenopathy. Abdominal wall: Unremarkable. IMPRESSION: Hepatic steatosis without evidence for suspicious hepatic observation. No acute process identified.
== END | disposition home or self-care (01) ==
LOC: RADMRIMAIN 17:43
PROVIDERS: ATTEND Internal Medicine
DX: K76.0 Fatty (change of) liver, not elsewhere classified (principal); R74.8 Abnormal levels of other serum enzymes
CPT/HCPCS: 74183; A9585